=== PATIENT | female | born 1970 | race Caucasian/White ===

== ENCOUNTER 2018-02-21 08:23 | Day surgery (SDC) | payer BC, OTHER ==
[~2018-02-21 08:23] MED LIST: Lidocaine 0.5% 50 ML SDV ONE; Midazolam 1 MG/ML 2 ML SDV ONE; Propofol 200 MG/20 ML SDV ONE; ceFAZolin 1 GM Vial ONE; fentaNYL 100 MCG/2 ML SDV ONE
[2018-02-21] MEDS ORDERED: Sodium Chloride 0.9% 5 ML Syringe FLUSH PRN (08:30)
[2018-02-21] MEDS: Lactated Ringers 1,000 ML IV SCH (09:00)
[2018-02-21] MEDS ORDERED: Bupivacaine 0.5% 30 ML SDV ONE (09:17)
[2018-02-21] MEDS ORDERED: Propofol 200 MG/20 ML SDV ONE (09:37)
[2018-02-21] MEDS ORDERED: Midazolam 1 MG/ML 2 ML SDV IV ONE (10:08)
[2018-02-21] MEDS ORDERED: Propofol 200 MG/20 ML SDV IV ONE (10:08)
[2018-02-21] MEDS ORDERED: Lidocaine 0.5% 50 ML SDV INJECT ONE (10:08)
[2018-02-21] MEDS ORDERED: ceFAZolin 1 GM Vial IV ONE (10:08)
[2018-02-21] MEDS ORDERED: fentaNYL 100 MCG/2 ML SDV IV ONE (10:08)
[2018-02-21] MEDS: Bupivacaine 0.5% 10 ML SDV INFILT ONE (10:40)
--- NOTE | 2018-02-21 11:20 | PCM.OPNOTE ---
- General Post-Op/Procedure Note Date of Surgery/Procedure: 02/21/18 Operative Procedure(s): Right carpal tunnel repair Findings: The transverse carpal ligament on the right side was found to be quite thick and the median nerve under a great deal of pressure. Pre Op Diagnosis: Carpal tunnel syndrome right Post-Op Diagnosis: Same Anesthesia Technique: Moderate Sedation Primary Surgeon: Aurora Aguilar Complications: None Condition: Good Free Text/Narrative:: INFORMED CONSENT: Patient is here today for elective right carpal tunnel decompression. All aspects of this procedure have been discussed with the patient. All possible complications also, including possibility of infection, pain, bleeding, persistence of pain, reoperation and other unknown complications.. Anesthetic complications were handled by anesthesia department. The patient understands fully well. Patient did not have any further questions for me at the end of my interview. The patient wishes for me to proceed. PROCEDURE: Patient was kept in the supine position and the satisfactory [place] block anesthesia was administered. The right arm was thoroughly prepped and draped in the usual fashion. The tourniquet was placed to the right upper arm and a vertical incision was made in the palm directly distal to the distal wrist crease. The skin incision was deepened through the subcutaneous tissue, the palmar aponeurosis was incised and then we came down upon the transverse carpal ligament, which was opened along the line of the skin incision. Extreme care was taken to protect the median nerve below. Careful neurolysis was performed meticulously. Approximately 2 cc of Marcaine 0.5% was instilled into the wound and skin was closed using mattress sutures with 3.0 Nylon. The tourniquet was released. A sterile pressure dressing was applied. The patient tolerated the procedure well and was transferred to the recovery room in excellent condition.
== END 2018-02-21 11:50 | disposition home or self-care (01) ==
LOC: KA.SDS 08:23
PROVIDERS: ATTEND Family Medicine
DX: G56.01 Carpal tunnel syndrome, right upper limb (principal); Z79.899 Other long term (current) drug therapy; Z88.2 Allergy status to sulfonamides
CPT/HCPCS: J0690; J2250; J2704; J3010; J7120

== ENCOUNTER 2018-08-20 06:49 | Day surgery (SDC) | payer OTHER ==
[2018-08-20] MEDS ORDERED: Bupivacaine 0.5% 30 ML SDV ONE (06:59)
[2018-08-20] MEDS ORDERED: Sodium Chloride 0.9% 5 ML Syringe FLUSH PRN (07:00)
[2018-08-20] MEDS ORDERED: Lactated Ringers 1,000 ML IV SCH (07:00)
[2018-08-20] MEDS ORDERED: fentaNYL 100 MCG/2 ML SDV ONE (07:04)
[2018-08-20] MEDS ORDERED: Midazolam 1 MG/ML 2 ML SDV ONE (07:04)
[2018-08-20] MEDS ORDERED: ceFAZolin 1 GM Vial ONE (07:04)
[2018-08-20] MEDS ORDERED: Lidocaine 0.5% 50 ML SDV ONE (07:04)
[2018-08-20] MEDS ORDERED: Propofol 200 MG/20 ML SDV ONE ×3 (07:04→08:23)
[2018-08-20] MEDS ORDERED: Ketamine 500 mg/10 ML MDV ONE (07:36)
[2018-08-20] MEDS ORDERED: Propofol 200 MG/20 ML SDV IV ONE (08:00)
[2018-08-20] MEDS ORDERED: Ketamine 500 mg/10 ML MDV IV ONE (08:00)
[2018-08-20] MEDS ORDERED: ceFAZolin 1 GM Vial IV ONE (08:00)
[2018-08-20] MEDS ORDERED: Midazolam 1 MG/ML 2 ML SDV IV ONE (08:00)
[2018-08-20] MEDS ORDERED: fentaNYL 100 MCG/2 ML SDV IV ONE (08:00)
[2018-08-20] MEDS ORDERED: Lidocaine 0.5% 50 ML SDV INJECT ONE (08:00)
[2018-08-20] MEDS ORDERED: Lactated Ringers 1,000 ML ONE (08:03)
[2018-08-20] MEDS ORDERED: Bupivacaine 0.5% 30 ML SDV INFILT ONE ×2 (08:30)
[2018-08-20] MEDS ORDERED: Morphine 4 MG/ML Syringe IVPUSH ONE (10:31)
--- NOTE | 2018-08-20 10:40 | PCM.OPNOTE ---
- General Post-Op/Procedure Note Date of Surgery/Procedure: 08/20/18 Operative Procedure(s): Right cubital tunnel decompression and repositioning of the ulnar nerve. Findings: The right ulnar nerve was stretched and moderately compressed in the proximal portion of the cubital tunnel. Anesthesia Technique: Moderate Sedation, Regional Block Primary Surgeon: Aurora Aguilar Condition: Good Free Text/Narrative:: Preoperative diagnosis: Right cubital tunnel syndrome. Postoperative diagnosis: As above. Procedure: Informed consent was obtained from the patient regarding this procedure. All possible complications were thoroughly discussed with the patient.these include infection, pain, bleeding, injury to the ulnar nerve, failure of the procedure to take care of the symptoms, re operation, and other unknown complications. Despite these complications the patient decided to proceed. She was placed in the supine position. A satisfactory [place] block anesthetic was administered to the right upper extremity after exsanguination. the right upper extremity was thoroughly cleansed and draped the usual fashion. an incision was made approximately 3 inches proximal and 3 inches distal to the medial condyle. The skin incision was deepened through the subcutis tissues and then became down upon the cubital tunnelwith a gently deroofed of the tunnel, and came upon the ulnar nerve.Carefully the nerve was dissected proximally to the intermuscular septum and distally to the common flexor origin.The nerve was severely compressed in the proximal portion near the inter muscular septum. Extreme care was taken to transpose the nerve anterior to the medial epicondyle. A fascial sheath was developed and was attached anteriorly prevent the nerve from slipping back into the cubital tunnel. The elbow was flexed and extended making sure that there was no tension on the ulnar nerve. Small bleeders were cauterized. The wound was profusely irrigated with saline. The nerve was also kept moist during the procedure with warm moist saline. A 1/4 inch [place] drain was placed in the depths of the incision and brought out inferiorly. The subcutaneous tissue was closed with 3-0 Polysorb and the skin was closed using stainless steel clips. Fluffy dressings were applied in addition to a posterior splint. The patient tolerated the procedure well. Blood loss was approximately 20 mL. there were no operative complications. The patient was transferred to the recovery room in an excellent condition. Sponge needle and instrument count were correct.
[2018-08-20] MEDS ORDERED: Cyclobenzaprine 5 MG Tab PO PRN (10:41)
[2018-08-20] MEDS ORDERED: Ibuprofen 400 MG Tab PO SCH (14:00)
[2018-08-20] MEDS ORDERED: Gabapentin 300 MG Cap PO SCH (14:00)
[2018-08-20] MEDS ORDERED: Non-Formulary Medication 1 Each (Rup Rub 1 APPLIC) TOP SCH (21:00)
[2018-08-21] MEDS ORDERED: Multivitamins with Minerals/Iron/Folic Acid/Lycopene Tab PO SCH (09:00)
[2018-08-21] MEDS ORDERED: Vitamin E (dl-alpha-tocopherol acetate) 400 Unit Cap PO SCH (09:00)
[2018-08-21] MEDS ORDERED: Citalopram 20 MG Tab PO SCH (09:00)
== END 2018-08-20 12:00 | disposition home or self-care (01) ==
LOC: KA.SDS 06:49
PROVIDERS: ATTEND Family Medicine
DX: G56.21 Lesion of ulnar nerve, right upper limb (principal); Z79.899 Other long term (current) drug therapy; Z88.2 Allergy status to sulfonamides
CPT/HCPCS: 64718; J0690; J2250; J2270; J2704; J3010; J3490; J7120